=== PATIENT | male | born 1970 | race Caucasian/White ===

== ENCOUNTER 2020-08-14 21:16 | Emergency (ER) | payer BC ==
[~2020-08-14] VITALS: Ht 170.2 cm; Wt 102.1 kg
[2020-08-14] MEDS ORDERED: OMEPRAZOLE 20 M20 M1 PO (21:31)
[2020-08-14] MEDS ORDERED: CIALIS5 MG PO (21:31)
[2020-08-14] MEDS ORDERED: ZYRTEC10 M5 PO (21:32)
[2020-08-14] MEDS ORDERED: FLEXERIL PO (22:05)
[2020-08-14 22:31] VITALS: BP 135/81
== END 2020-08-14 22:31 | disposition home or self-care (01) ==
LOC: M.ERS 21:16
DX: S01.01XA Laceration without foreign body of scalp, initial encounter (principal); Z79.899 Other long term (current) drug therapy; W22.8XXA Striking against or struck by other objects, initial encounter; Y93.89 Activity, other specified; Y92.89 Other specified places as the place of occurrence of the external cause; Y99.9 Unspecified external cause status